=== PATIENT | female | born 1945 | race Caucasian/White ===

== ENCOUNTER → 2017-02-13 | Outpatient (CLI) | payer MEDICARE ==
[~2017-02-13] MED LIST: ADVIL200 M1 PO; ASPIRIN EC81 MG PO; CIPRO500 MG PO; CULTURELLE1 CAP PO; ELAVIL75 MG PO; FLAGYL500 MG PO; GREEN TEA CAPL1 EACH PO; LEVOTHROID(SYN75 MCG PO; NORVASC2.5 MG PO; OSCAL + D500 MG PO; PROAIR HFA8.5 GM INH; SINGULAIR10 MG PO; THERA-VITE W/ B1 TAB PO; TURMERIC500 MG PO; VIIBRYD40 MG PO; VISTARIL50 MG PO; XANAX0.25 MG PO; ZOCOR40 MG PO
--- NOTE | ~2017-02-13 | PUL ---
PATIENT'S NAME: JASON BRYANT [facility] AGE: 71 Y [address] ROOM: [place] [id number] LOCATION: [facility] ADMIT DATE: 02/13/2017 Pulmonary DISCHARGE DATE: FAMILY PHYSICIAN: Deyvi Sevilla MD ATTENDING PHYSICIAN: Dwaine Royal NAME OF PROCEDURE: Home sleep test DATE OF PROCEDURE: 02/13/2017 TECH: Ros Osman [facility] SUMMARY: Patient underwent home sleep testing using a type III device and was studied for 9 hours 5 minutes. In that time there were 28 obstructive apneas, 8 central apneas, for an apnea/hypopnea index mildly elevated at 9.1 events per hour. The majority of the events occurred with the patient sleeping supine. Oxygen saturations ranged from 82-92% heart rate ranged from 47-88 beats per minute. IMPRESSION: Mild mostly positional obstructive sleep apnea. PLAN: Patient will receive results from the ordering provider. MD ALEENA MARTINEZ/ /[id number] dtt: 02/22/17 1018 , Shine Richards dtd: 02/18/17 1451
--- NOTE | ~2017-02-13 | PUL ---
PATIENT'S NAME: JASON BRYANT [facility] AGE: 71 Y [address] ROOM: [place] [address] LOCATION: [facility] ADMIT DATE: 02/13/2017 Pulmonary DISCHARGE DATE: FAMILY PHYSICIAN: Deyvi Sevilla MD ATTENDING PHYSICIAN: Dwaine Royal PROCEDURE: Actigraphy DATE OF PROCEDURE: 02/13/17-02/27/17 TECH: [facility] SUMMARY: The patient underwent Actigraphy monitoring from 02/13/2017 through 02/27/2017. Average time in bed was 10:33 p.m. Average time awake was 7:29 a.m. Average time in bed was 9 hours with an average sleep time of 7 hours 11 minutes. Sleep onset average 22 minutes and sleep efficiency was 80%. MD ALEENA MARTINEZ/ /[id number] dtt: 03/08/17 0838 Maurice David E. dtd: 03/05/17 1650
== END | disposition disaster alternative care site (69) ==
LOC: GSLP 01-30 16:50
DX: G47.33 Obstructive sleep apnea (adult) (pediatric) (principal); G47.00 Insomnia, unspecified; I10 Essential (primary) hypertension; K21.9 Gastro-esophageal reflux disease without esophagitis
CPT/HCPCS: G0399

== ENCOUNTER → 2017-05-15 | Outpatient (CLI) | payer MEDICARE | END | disposition disaster alternative care site (69) | LOC: GBCOE 09:50 | DX: Z12.31 Encounter for screening mammogram for malignant neoplasm of breast (principal) | CPT/HCPCS: G0202 ==